=== PATIENT | female | born 1955 | race Caucasian/White ===

== ENCOUNTER 2024-03-23 14:59 | Emergency (ER) | payer MEDICARE, MEDICAID, SELFPAY ==
--- NOTE | ~2024-03-23 | XR_ITS ---
EXAMINATION: XR chest 2V DATE: 03/23/2024 16:00 INDICATION: Shortness of breath. Cough. TECHNIQUE: Frontal and lateral views of the chest were obtained. COMPARISON: None. FINDINGS: There is mild atelectasis in left lower lung zone. No pleural effusion or pneumothorax. The heart size is normal. IMPRESSION: 1. Mild atelectasis in left lower lung zone. Reviewed, dictated and finalized at location A.
[2024-03-23 15:15] VITALS: BP 144/98; PULSE 60; RESP 20; TEMP 36.7; O2SAT 98
--- NOTE | 2024-03-23 15:43 | ED.URI ---
HPI - URI/Sore Throat General Chief Complaint: Chest Pain Stated Complaint: back and chest pain Time Seen by Provider: 03/23/24 15:38 Source: patient, family, RN notes reviewed and old records reviewed Mode of arrival: ambulatory Limitations: no limitations History of Present Illness HPI Narrative: 68 year old female accompanied by daughter who presents to express care with complaints of back and chest pain for the past 2 days on and off, rates pain as 5/10 when occurs states is midsternal and goes to her back at times states it is sharp. Patient also reports 5-7 days, of shortness of breath, occasional cough, congestion states is concerned for pneumonia and dizziness. Patient reports that she has had dizziness, elevated blood pressure anxiety and constipation for some time and that her PCP is aware.. Daughter states patient was seen in ED on 02/05/2024 for similar complaints with no new treatment. MD elicited complaint: cough and other (shortness of breath, chest pain, back pain, dizziness, hypertension) Onset (ago): day(s) (2 days chest and back pain on and off, 5-7 days cough, shortness of breath) Pain scale (0-10): 5 Able to tolerate fluids by mouth: Yes Treatments prior to arrival: none Related Data Home Medications Medication Instructions Recorded Confirmed atorvastatin 10 mg tablet 10 mg PO DAILY 03/23/24 03/23/24 bictegravir 50 mg-emtricitabine 1 tablet PO DAILY 03/23/24 03/23/24 200 mg-tenofovir alafenam 25 mg tablet (Biktarvy) diazepam 5 mg tablet See Rx Instructions .Route .COMPLEX 03/23/24 03/23/24 lisinopril 40 mg tablet 40 mg PO DAILY 03/23/24 03/23/24 metoprolol tartrate 100 mg tablet 100 mg PO BID 03/23/24 03/23/24 mirtazapine 15 mg disintegrating 15 mg PO DAILY 03/23/24 03/23/24 tablet nifedipine 30 mg tablet,extended 30 mg PO DAILY 03/23/24 03/23/24 release Allergies Allergy/AdvReac Type Severity Reaction Status Date / Time codeine Allergy Unknown Unknown Verified 03/23/24 15:59 Penicillins Allergy Unknown Unknown Verified 03/23/24 15:59 Review of Systems Review of Systems: CONSTITUTIONAL: Denies fever, chills, or sweats. EYES: Denies visual changes, redness, or discharge. ENT: Denies rhinorrhea, congestion, sore throat, or otalgia. CARDIOVASCULAR: intermittent on and off chest pain which goes to her back at times, no palpitations, or edema. RESPIRATORY: reports some cough and some dyspnea with exertion GASTROINTESTINAL: Denies abdominal pain, nausea, vomiting, or diarrhea. GENITOURINARY: Denies dysuria or hematuria. SKIN: Denies rash or itching. MUSCULOSKELETAL: States occasional back pain, joint pain, or myalgia. NEUROLOGIC: Denies headache, numbness, or weakness. PSYCHIATRIC: Positive for anxiety or depression. All systems reviewed & are unremarkable except as noted in HPI and below PMFSH Past Medical History Medical History (Updated 03/24/24 @ 16:31 by Cheryl Morillo NP) Anxiety and depression Constipation Elevated cholesterol HIV (human immunodeficiency virus infection) takes med Hypertension Surgical History Surgical History H/O section Social History Social History (Updated 03/23/24 @ 16:39 by Cheryl Morillo NP) Smoking packs per day: 0.5 Smoking cigarettes per day: 10.0 Smoking status: Former smoker Tobacco type: cigarettes Alcohol intake: never Substance use type: does not use Living arrangements: with family Gender identity (if verbalized by the patient): Female Comments At time of signature, agree with nursing past medical, surgical, social and family history. There is no relevant family history pertinent to the presenting complaint Exam Narrative: GENERAL: Well-appearing, well-nourished, looks older than stated age, and in no acute distress. HEAD: Normocephalic, atraumatic. EYES: PERRLA and EOMI. ENT: Nares clear, no rhinorrhea or epistaxis. Mucous membranes moist.TM
[2024-03-23 15:45] VITALS: BP 174/90; PULSE 63
[2024-03-23 15:47] VITALS: BP 154/102; PULSE 67
[2024-03-23 15:49] VITALS: BP 134/94; PULSE 90
--- NOTE | 2024-03-23 16:23 | ECG_ITS ---
Test Date: 2024-03-23 16:28:47 Measurements Intervals Jenkins Rate: 57 P: 52 NC: 124 QRS: 80 QRSD: 98 T: 87 QT: 407 QTc: 397 Interpretive Statements SINUS RHYTHM No previous ECG available for comparison Electronically Signed On 03-24-2024 17:03:08 CDT by Romero Olivares M.D.
== END 2024-03-23 16:50 | disposition home or self-care (01) ==
PROVIDERS: Emergency Provider Registered Nurse; PCP Internal Medicine Infectious Disease
DX: R07.89 Other chest pain (principal); Z87.891 Personal history of nicotine dependence; E78.00 Pure hypercholesterolemia, unspecified; I10 Essential (primary) hypertension; Z21 Asymptomatic human immunodeficiency virus [HIV] infection status
CPT/HCPCS: 71046; 93005; 99213; G0463